=== PATIENT | male | born 1980 | race Caucasian/White ===

== ENCOUNTER 2019-06-22 12:33 | Emergency (ER) | payer MEDICARE, MEDICAID ==
[~2019-06-22] VITALS: Ht 188 cm; Wt 95.3 kg
--- NOTE | 2019-06-22 13:00 | NUR ---
ED Nurse Note: pt walked in c/o rash on buttock area, pt states it has been there for a while but reports it goes away after using antibiotic. noted reddened bump on upper left buttock with scabs, no sx infection, will cont monitor.
[2019-06-22 13:01] VITALS: BP 137/76
--- NOTE | 2019-06-22 13:06 | Emergency Room Report ---
History of Present Illness General Chief Complaint: Skin Rash/Abscess Source: Patient Present Illness HPI 39-year-old male presents with nonspecific rash on the buttock, and right hand, patient states has been putting antibiotic cream, it has been reoccurring for the past month, no fever no chills, itchy nature, alleviated with antibiotic cream, no abdominal pain, no chest pain, no shortness of breath patient presents for evaluation Allergies: Coded Allergies: No Known Allergies (Unverified , 06/22/19) Patient History Past Medical History: see triage record Reviewed Nursing Documentation: PMH: Agreed; PSxH: Agreed Nursing Documentation-PMH Past Medical History: No History, Except For History Of Psychiatric Problem: Yes - shcizo and bipolar as child Review of Systems Constitutional: Denies: chills, fever Eye: Denies: blurred vision, double vision ENT: Denies: throat pain, nasal discharge Respiratory: Denies: cough, shortness of breath Cardiovascular: Denies: chest pain, palpitations Gastrointestinal: Denies: abdominal pain, diarrhea, nausea, vomiting Genitourinary: Denies: dysuria, pain Musculoskeletal: Denies: back pain, muscle pain Skin: Denies: rash, lesions Neurological: Denies: headache, focal weakness Hematologic/Lymphatic: Denies: easy bleeding, easy bruising All Other Systems: negative except mentioned in HPI Physical Exam Vital Signs Date Time Temp Pulse Resp B/P (MAP) Pulse Ox O2 Delivery O2 Flow Rate FiO2 06/22/19 12:46 97.9 99 20 137/76 (96) 99 Room Air Sp02 EP Interpretation: reviewed, normal General Appearance: well appearing, no apparent distress, alert Head: normocephalic, atraumatic Eyes: bilateral eye PERRL, bilateral eye EOMI ENT: uvula midline, moist mucus membranes Neck: supple, thyroid normal, supple/symm/no masses Respiratory: lungs clear, no respiratory distress, no retraction, no accessory muscle use Cardiovascular #1: normal peripheral pulses, regular rate, rhythm, no edema, no gallop, no murmur Gastrointestinal: non tender, soft, no guarding, no rebound Musculoskeletal: normal inspection Neurologic: alert, oriented x3 Psychiatric: mood/affect normal Skin: no rash, warm/dry Medical Decision Making Diagnostic Impression: Primary Impression: Rash and other nonspecific skin eruption ER Course Patient with nonspecific rash, no current rash presently seen, may be some red irritated skin however no evidence of infection, no pustules, no folliculitis, patient given return precautions, patient counseled to follow-up with a kiln placer. Last Vital Signs Date Time Temp Pulse Resp B/P (MAP) Pulse Ox O2 Delivery O2 Flow Rate FiO2 06/22/19 13:01 97.9 95 16 137/76 99 Room Air Disposition: HOME, SELF-CARE Condition: Stable Scripts No Active Prescriptions or Reported Meds Patient Instructions: Rash Additional Instructions: The patient was provided with discharge instructions, notified to follow-up with a primary care doctor and or specialist in the next 24-48 hours, and to return to the ED if they have worsening of their symptoms. Please note that this report is being documented using [employer] technology. This can lead to erroneous entry secondary to incorrect interpretation by the dictating instrument. Kelvin Bettencourt MD Jun 22, 2019 13:06
[2019-06-22 13:10] VITALS: BP 137/76
--- NOTE | 2019-06-22 13:10 | NUR ---
ED Nurse Note: PT CLEARED TO BE D/C PER ERMD, PT DISCHARGE AND AFTERCARE INSTRUCTION PROVIDED, PT ADVISED TO FOLLOW UP WITH PCP OR RETURN TO ED IF CHANGES IN CONDITION, VSS, AMBULATORY W/ STEADY GAIT LEFT W/ ALL BELONGINGS. PT REPORTS HE IS GOING TO [place] TODAY BY TAKING BUS.
== END 2019-06-22 13:10 | disposition home or self-care (01) ==
LOC: EMR 13:10
DX: R21 Rash and other nonspecific skin eruption (principal); F25.9 Schizoaffective disorder, unspecified; F31.9 Bipolar disorder, unspecified
CPT/HCPCS: 99281